=== PATIENT | female | born 1995 ===

== ENCOUNTER 2024-03-14 11:30 | Emergency (ER) | payer MEDICAID ==
[~2024-03-14] VITALS: Ht 162.6 cm; Wt 77.2 kg
[2024-03-14 11:44] VITALS: BP 146/91; PULSE 89; RESP 16; TEMP 97.4; O2SAT 97
[2024-03-14 11:55] LABS: COVID AG,FIA SOURCE NASAL SWAB
[2024-03-14 12:14] LABS: SARS-COV2 (COVID) ANTIGEN,FIA Negative (Negative)
[2024-03-14 12:15] LABS: INFLUENZA TYPE A NEGATIVE FOR TYPE A (NEGATIVE); INFLUENZA TYPE B NEGATIVE FOR TYPE B (NEGATIVE)
[2024-03-14] MEDS: AMOXICILLIN TRIHYDRATE 250 MG CAPSULE PO ONE (13:20)
[2024-03-14] MEDS: NEOMYCIN/POLYMYXIN B/HYDROCORT 10 ML OTIC SUSPENSION AD ONE (13:21)
[2024-03-14] MEDS ORDERED: AMOX500C2 PO (13:57)
[2024-03-14] MEDS ORDERED: IBUP-1492 PO (13:57)
== END 2024-03-14 14:06 | disposition home or self-care (01) ==
LOC: EMS 11:30
DX: H66.91 Otitis media, unspecified, right ear (principal); H60.91 Unspecified otitis externa, right ear; Z20.822 Contact with and (suspected) exposure to COVID-19
CPT/HCPCS: 87804; 99283